=== PATIENT | female | born 1955 | race Caucasian/White ===

== ENCOUNTER 2018-03-01 07:42 | Emergency (ER) | payer MEDICAID, SELFPAY ==
[2018-03-01] VITALS (7 sets, daily range): BP systolic 131–184; BP diastolic 69–98; PULSE 74–89; RESP 16–19; TEMP 36.8; O2SAT 95–97; BMI 30.7
--- NOTE | 2018-03-01 08:02 | EKG12_ITS ---
Test Reason : DIZZINESS Blood Pressure : / mmHG Vent. Rate : 085 BPM Atrial Rate : 085 BPM P-R Int : 180 ms QRS Dur : 084 ms QT Int : 366 ms P-R-T Axes : 023 -28 020 degrees QTc Int : 435 ms Normal sinus rhythm Poor R wave progression Confirmed by AALIYAH LANCE, ENIO ([id number]), graphics editor GIO PALMA ([id number] on 03/05/2018 3:33:18 PM Referred By: ABHISHEK Confirmed By:ENIO FISCHER MD
--- NOTE | 2018-03-01 08:08 | ED.DCSUM_ITS ---
- ER Visit Summary Date of Service: 03/01/18 Chief Complaint: Dizzy History of Present Illness: The patient is a 62 F past medical history of hypothyroidism and palpitations. States that she felt dizzy today at work and nauseated. I asked her to explain specifically what she meant by dizzy and she said just flushed and cough. She denies any headache. She denies any chest pain. She denies any recent head injury. She denies the room spinning. She denies any neurological symptoms. No visual change. No speech change. No trouble using her hands or legs. She denies being off balance. Physical Examination: 62-year-old female no acute distress. Vital stable and afebrile. Initial blood pressure is 184/95. She does not look septic or toxic. She is in no distress. H EENT exam is unremarkable. Pupils round reactive light. Extra motions are intact. There is no signs of trauma to her face or scalp. No facial droop. Normal speech. Neck nontender. No lymphadenopathy. Lungs clear to auscultation bilaterally. Heart regular rate and rhythm no murmur. Rate of 80. Abdomen is soft and nontender. Normal bowel sounds no peritoneal signs. Patient moving all 4 extremities. Neurovascular intact. 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 Dorsi plantar flexion intact. Neurologically she is awake and alert with no focal motor deficits. Fingertip to nose and heel to [place] within normal limits. NIH score is 0. Back is nontender. Skin is unremarkable. Test Results: CBC normal white count of 7. Hemoglobin 14. Electrolytes unremarkable. Gap 11. Normal glucose. Creatinine 0.8. Orthostatic vital signs were negative. CT of the brain showed no acute abnormality. Read by the radiologist. Reviewed by me. Did the patient's dizziness even though clinically her exam was unremarkable I did obtain a CTA of the brain which was normal read by the radiologist. A CTA of the neck which showed a 50-69% stenosis of the right internal carotid artery. This can be followed up as an outpatient. Emergency Department Course and Treatment: Repeat exam patient is doing well at 1410. States she feels fine. Her symptoms have resolved. She understands we do not have a specific cause but is comfortable being discharged home with outpatient follow-up. She was specifically instructed to follow-up for further evaluation of the right internal carotid disease. Patient had further episodes of her dizziness while in the emergency department. Each time her vital signs, blood pressure and heart rate remained normal. And her exam otherwise Treatment Plan: Outpatient follow-up with her primary care physician Dr. Syl Shook Disposition: Discharge Impression: Transient dizziness of uncertain etiology resolved This note was generated with [employer] dictation software. It may contain incorrect words, spelling, and punctuation that were not noted in review of the chart prior to signing ED Disposition - Plan for ED Patient: Disposition: Home or Assisted Living Chief Complaint: Dizziness Instructions: ED Dizziness [facility] Referrals: Syl Shook, [STAFF PHYSICIAN] - As soon as possible Additional Instructions: Call follow-up with your primary care physician. Today your tests are basically unremarkable except for some narrowing of your right internal carotid artery but not to the degree that it would need any surgery at this time. This can be followed up as an outpatient with your primary care physician.
[2018-03-01 08:22] LABS: Absolute Lymphocyte Count 1.52 X10^3/ul (0.83-4.51); Absolute Neutrophil Count 5.4 X10^3/uL (2.0-7.7); Basophil# 0.01 X10^3/uL; Basophil% 0.1 % (0-1); Eosinophil# 0.23 X10^3/uL; Hematocrit 43.2 % (37-47); Hemoglobin 14.1 g/dl (12.0-15.0); Lymphocyte # 1.52 X10^3/ul (4.0); Lymphocyte % 19.6 % (19-41); Mean Corp Hgb Conc 32.6 g/gl (32-36); Mean Corpuscular Hgb 30.7 pg (27.0-32.0); Mean Corpuscular Volume 94.1 fL (81-99); Monocyte# 0.62 X10^3/uL; Neutrophil # 5.37 X10^3/uL (2.7-7.7); Neutrophil % 69.2 % (47-70); Platelet Count 321 K/mm3 (150-450); RBC Distribution Width CV 13.1 % (11.6-14.6); RBC Distribution Width SD 44.6 fl (35.1-43.9); Red Blood Count 4.59 M/mm3 (4.2-5.4); White Blood Count 7.8 K/mm3 (4.4-11.0)
[2018-03-01 08:25] LABS: POSITIVE COUNT NO; POSITIVE DIFFERENTIAL NO; POSITIVE MORPHOLOGY NO
--- NOTE | 2018-03-01 08:25 | CT_ITS ---
STUDY: CT BRAIN WITHOUT CONTRAST REASON FOR EXAM: Female, 62 years old. Dizziness. RADIATION DOSAGE (If Supplied By Facility): CTDIvol = ( 60.81 ) mGy, DLP = ( 998.67 ) mGycm TECHNIQUE: Transaxial CT imaging of the brain was performed without administration of intravenous contrast material. Individualized dose optimization techniques were used for this CT. COMPARISON: None. FINDINGS: Normal soft tissue structures. There is hyperostosis frontalis internus. Normal size ventricles and extra-axial spaces for the patient's age. Normal white matter tracts of the cerebral hemispheres. There are small punctate calcifications of the basal ganglia which are seen in the aging brain as a normal variant. Normal brainstem. Normal cerebellum. There is no intracranial hemorrhage. There are no findings of an acute ischemic infarction. Normal visualized paranasal sinuses. CT/Brain/Head without Contrast IMPRESSION: Normal unenhanced CT scan of the brain. Electronically Signed: Fili Kim MD at 9:21 EST , Service support ,
[2018-03-01 08:28] LABS: Anion Gap 11 (5-15); BUN 10 mg/dL (7-18); BUN/Creat Ratio 12.4 RATIO (10-20); Calcium,Total 8.9 mg/dL (8.5-10.1); Chloride 103 mmol/L (98-107); Creatinine, Serum 0.81 mg/dL (0.55-1.02); EST Glomerular Filtration Rate 76 mL/min (>60); Est Glom Filt Rate - Afr Amer 92 mL/min (>60); Estimated Creatinine Clearance 56.23 ml/min; Glucose 161 mg/dL (74-106); Potassium 3.6 mmol/L (3.5-5.1); Sodium Level 139 mmol/L (136-145)
--- NOTE | 2018-03-01 11:04 | ED.RN ---
NOTIFIED THAT PT STILL DOES NOT FEEL WELL.
[2018-03-01] MEDS: 0.9% Normal Saline 1,000 ML 999 ML IV (11:16)
--- NOTE | 2018-03-01 11:16 | CT_ITS ---
STUDY: CTA NECK WITH CONTRAST REASON FOR EXAM: Female, 62 years old. Dizziness, headache RADIATION DOSAGE (If Supplied By Facility): CTDIvol = ( 21.76 ) mGy, DLP = ( 668.38 ) mGycm TECHNIQUE: CT angiography with multi-detector data acquisition was performed from the aortic arch to the skull base following intravenous administration of 75 ml of Isovue 370 contrast. MIP images were reconstructed from the axial data set. Post-processing of the angiographic images was performed, with multiplanar reformation and 3D reconstruction. Individualized dose optimization techniques were used for this CT. COMPARISON: None. FINDINGS: AORTIC ARCH: Normal visualized aortic arch. Normal origins of the brachiocephalic, left common carotid, and left subclavian arteries. RIGHT CAROTID ARTERIES: Normal right common carotid artery (CCA). There is mild atherosclerotic plaque formation with minimal narrowing of the right carotid bulb. There is moderate atherosclerotic plaque formation of the origin of the right internal carotid artery with an estimated stenosis of 50-69% stenosis. Normal visualized cervical portion of the right internal carotid artery. Normal origin of the right external carotid artery (ECA). LEFT CAROTID ARTERIES: Normal left common carotid artery (CCA). Normal left common carotid bulb. Normal origin of the left internal carotid (ICA) artery without a hemodynamically significant stenosis. Normal visualized cervical portion of the left internal carotid artery. Normal origin of the left external carotid artery (ECA). VERTEBRAL ARTERIES: Normal bilateral vertebral arteries. No suspicious enhancing lesion, airway narrowing or deviation CT/CTA Neck W/WO Contrast IMPRESSION: 50-69% stenosis of the proximal right ICA with moderate atherosclerotic plaque best seen on axial image 119, and sagittal reconstructed image 72. No other evidence of hemodynamically significant stenosis Electronically Signed: Raman Lino MD at 11:57 EST , Service support ,
--- NOTE | 2018-03-01 11:16 | CT_ITS ---
STUDY: CTA OF THE BRAIN REASON FOR EXAM: Female, 62 years old. Headache and dizziness RADIATION DOSAGE (If Supplied By Facility): CTDIvol = ( 21.76 ) mGy, DLP = ( 668.38 ) mGycm TECHNIQUE: CT angiography was performed with a multi-detector CT scanner. Data acquisition was obtained from the skull base through the vertex following intravenous administration of 75 ml of Isovue 370. MIP images were reconstructed from the axial data set. Post-processing of the angiographic images was performed, with multiplanar reformation and 3D reconstruction. Individualized dose optimization techniques were used for this CT. COMPARISON: None. FINDINGS: Normal bilateral petrous carotid arteries. Normal right cavernous carotid artery with a normal supraclinoid bifurcation. Normal left cavernous carotid artery with a normal supraclinoid bifurcation. Normal right A1 segments of the anterior cerebral artery. Normal left A1 segments of the anterior cerebral artery. Normal intact anterior communicating artery (ACOM). Normal bilateral A2 segments of the anterior cerebral arteries. Normal right M1 and M2 segments of the middle cerebral arteries, with a normal M1 bifurcation. Normal left M1 and M2 segments of the middle cerebral arteries, with a normal M1 bifurcation. Normal right posterior communicating artery (PCOM). Normal left posterior communicating artery (PCOM). Normal bilateral vertebral arteries. Normal basilar artery with a normal basilar bifurcation. The visualized bilateral superior cerebellar (SCA) arteries are normal. Normal bilateral P1, P2 and visualized P3 segments of the posterior cerebral arteries. There is no demonstrated aneurysm of the [place]. There is no demonstrated abnormality of the visualized brain. CT/CTA Head W/WO Contrast IMPRESSION: Normal [place] without a demonstrated aneurysm or hemodynamically significant stenosis. Electronically Signed: Raman Lino MD at 11:55 EST , Service support ,
--- NOTE | 2018-03-01 14:21 | ED.DEP ---
ED Disposition - Plan for ED Patient: Disposition: Home or Assisted Living Chief Complaint: Dizziness Instructions: ED Dizziness [facility] Referrals: Syl Shook DO [STAFF PHYSICIAN] - As soon as possible Additional Instructions: Call follow-up with your primary care physician. Today your tests are basically unremarkable except for some narrowing of your right internal carotid artery but not to the degree that it would need any surgery at this time. This can be followed up as an outpatient with your primary care physician.
== END 2018-03-01 15:07 | disposition home or self-care (01) ==
PROVIDERS: Emergency Provider Emergency Medicine
DX: R42 Dizziness and giddiness (principal); E03.9 Hypothyroidism, unspecified; Z79.899 Other long term (current) drug therapy
CPT/HCPCS: 70450; 70496; 70498; 80048; 85025; 93005; 96360; 96361; 99285; J7030; Q9967

== ENCOUNTER → 2018-03-19 09:33 | Outpatient (CLI) | payer MEDICAID, SELFPAY ==
[2018-03-12 10:42] VITALS: BMI 29.2
--- NOTE | 2018-03-19 09:35 | US_ITS ---
STUDY: ABDOMINAL ULTRASOUND - RIGHT UPPER QUADRANT REASON FOR VISIT: Female, 62 years old. Epigastric pain TECHNIQUE: Ultrasound evaluation of the right upper quadrant was performed with real-time and static zee-scale imaging. TECHNICAL QUALITY: Adequate. COMPARISON: None. FINDINGS: Liver: The liver measures 14.4 cm. There is normal echogenicity of the liver. The bile ducts are within normal limits. There is hepatic color flow. The direction of portal flow is hepatopetal. There is no demonstrated mass lesion. Gallbladder: Normal distended gallbladder. The gallbladder wall measures 2.4 mm. There is a negative sonographic Negro's sign. There is no pericholecystic fluid. There are no gallstones. There is a 2.3 mm polyp Common Bile Duct (C.B.D.): The common bile duct measures 2.1 mm. Pancreas: Poorly visualized because of overlying bowel gas. Right Kidney: Normal size of the right kidney. The right kidney measures 10.3 x 4.8 cm. Normal renal cortex.. There is no demonstrated renal mass or cyst. There is no right hydronephrosis. US/Gallbladder IMPRESSION: No gallstones. A 2 x 3 mm polyp within the gallbladder wall Electronically Signed: Rahat Franco MD at 5:49 EST Tel , Service support ,
== END ==
PROVIDERS: Family Provider Family Medicine; PCP Family Medicine; Referring Provider Internal Medicine Cardiovascular Disease; Visit Provider Internal Medicine Cardiovascular Disease
DX: R07.9 Chest pain, unspecified (principal); R10.13 Epigastric pain; R42 Dizziness and giddiness; R94.31 Abnormal electrocardiogram [ECG] [EKG]
CPT/HCPCS: 76705; 93306

== ENCOUNTER → 2018-03-21 12:36 | Outpatient (CLI) | payer MEDICAID, SELFPAY ==
[2018-03-12 10:42] VITALS: BMI 29.2
--- NOTE | 2018-03-21 12:37 | STE_ITS ---
Reason For Study: Chest Pain Stress Results Protocol: Misael Protocol Maximum Predicted HR: 157 bpm Target HR: 133 bpm % Maximum Predicted HR: 82 % DurationHeart Rate Stage (mm:ss) (bpm) BP Comment Baseline 81 136/84No Chest Pain Misael Protocol Stage I 3:00 108 150/78No Chest Pain; Mild Dyspnea Misael Protocol Stage II 5:00 129 154/76No Chest Pain; Mild Dyspnea; Fatigue Recovery 91 126/74No Chest Pain Stress Duration: 8:00 mm:ss Maximum Stress HR: 129 bpm METS: 7 Baseline Echocardiogram Findings The estimated ejection fraction is 65 %. Stress Echo Wall motion Data Resting WM Intermediate WM Stress WM Resting Wall Motion Wall Motion Stress No regional wall motion No regional wall motion abnormalities noted. abnormalities noted. EKG Data Normal intervals are noted. The patient exercised according to the regular Misael protocol for a total duration of 8:00. The maximum heart rate attained was 130 beats per minute. This was 82% of maximum predicted heart rate. The patient exercised into stage 2 of the Misael protocol. During stress, there were no ST or T wave changes noted to suggest ischemia. No clinical angina was noted. Interpretation Summary The estimated ejection fraction is 65 %. Normal, adequate, treadmill echocardiogram. Negative for ischemia by EKG and echocardiographic criteria. No anginal symptoms noted. Rare PVCs noted. Appropriate blood pressure response to exercise. Below average exercise capacity for age. Final LVEF is 75%. Test terminated due to fatigue. No complications. Ordering Physician: Mitch Lopez Referring Physician: Nancy Evangelista Performed By: Blanche Jean RDCS, RVT
== END ==
PROVIDERS: Family Provider Family Medicine; PCP Family Medicine; Referring Provider Internal Medicine Cardiovascular Disease; Visit Provider Internal Medicine Cardiovascular Disease
DX: R07.9 Chest pain, unspecified (principal); R94.31 Abnormal electrocardiogram [ECG] [EKG]; R42 Dizziness and giddiness; I77.9 Disorder of arteries and arterioles, unspecified; E78.5 Hyperlipidemia, unspecified
CPT/HCPCS: 93017; 93350

== ENCOUNTER 2018-04-23 06:47 | Day surgery (SDC) | payer MEDICAID, SELFPAY ==
[2018-04-18 11:33] VITALS: BMI 29.0
--- NOTE | 2018-04-18 12:30 | RAD_ITS ---
STUDY: X-RAY CHEST REASON FOR EXAM: Female, 62 years old. Tachycardia, palpitations TECHNIQUE: PA and lateral views of the chest. COMPARISON: None. FINDINGS: The lungs are clear and expanded. There is no demonstrated pleural abnormality. Normal size heart. Normal mediastinum and myra. Normal visualized pulmonary arteries. Normal visualized aortic arch and descending thoracic aorta. There are diffuse degenerative changes of the visualized thoracic spine. Normal visualized ribs, clavicles, and shoulders. There is no demonstrated abnormality of the visualized soft tissue structures of the upper abdomen. RAD/Chest PA and Lateral IMPRESSION: No acute pulmonary process Electronically Signed: Raman Lino MD at 17:19 EDT , Service support ,
[2018-04-18 14:03] LABS: Hematocrit 41.3 % (37-47); Hemoglobin 13.4 g/dl (12.0-15.0); Mean Corp Hgb Conc 32.4 g/gl (32-36); Mean Corpuscular Hgb 30.7 pg (27.0-32.0); Mean Corpuscular Volume 94.5 fL (81-99); Mean Platelet Vol. 10.4 fl (6.2-12.0); Platelet Count 349 K/mm3 (150-450); RBC Distribution Width CV 12.8 % (11.6-14.6); RBC Distribution Width SD 44.3 fl (35.1-43.9); Red Blood Count 4.37 M/mm3 (4.2-5.4); White Blood Count 8.5 K/mm3 (4.4-11.0)
[2018-04-18 14:05] LABS: Scan Indicated on CBC? Y/N NO
[2018-04-18 14:06] LABS: Prothrombin Time (Protime)PT. 12.8 SECONDS (11.7-14.9)
[2018-04-18 14:07] LABS: Partial Thromboplast Time 29.2 Seconds (24.1-36.2)
[2018-04-18 14:20] LABS: AST(SGOT) 17 U/L (15-37); Alanine Aminotransfer ALT/SGPT 25 U/L (13-56); Albumin, Serum 3.8 g/dL (3.2-5.0); Alkaline Phosphatase 114 U/L (45-117); Anion Gap 8 (5-15); BUN 14 mg/dL (7-18); Calcium,Total 8.8 mg/dL (8.5-10.1); Chloride 103 mmol/L (98-107); Cholesterol 191 mg/dL (200); Creatinine, Serum 0.74 mg/dL (0.55-1.02); EST Glomerular Filtration Rate 85 mL/min (>60); Est Glom Filt Rate - Afr Amer 103 mL/min (>60); Globulin 3.8 g/dL (2.2-4.2); Glucose 107 mg/dL (74-106); High Density Lipoprotein 29 mg/dL; Magnesium 2.2 mg/dL (1.6-2.6); Potassium 4.2 mmol/L (3.5-5.1); Protein, Total 7.6 g/dL (6.4-8.2); Sodium Level 139 mmol/L (136-145); T4 Total, Thyroxin 7.9 ug/dL (4.8-13.9); Thyroid Stim Hormone (TSH) 2.18 uIU/mL (0.358-3.74); Triglycerides 595 mg/dL
[2018-04-22 07:39] VITALS: BMI 29.0
--- NOTE | 2018-04-23 08:56 | CL.D_ITS ---
Patient Name: RACHELE EARL Study Date: 04/23/2018 Performing: Mitch Lopez MD Ht: 61.81 inches 157 cm : 1955 Wt: 158.73 lbs 72 kg Age: 62 Gender: female BSA: 1.73 PROCEDURE(S) PERFORMED OY12-JSX/COR/LV CLINICAL PROFILE AND INDICATIONS Indications: Suspected CAD, Cardiac Arrythmia Heart Failure: None Stress/Imaging Stress Echocardiogram: Yes Result: NegativeStress Echocardiogram: Negative Angina Classification Anginal Classification w/in 2 Weeks: No symptoms CAD Presentations: Other: Frequent PVCs and palpitations Comorbidities/Risk Factors: Hypertension Dyslipidemia CONCLUSIONS Normal LV size, wall motion,and systolic function Non obstructive coronary arteries Perserved Left Ventricular systolic function with normal EDP LVEF: by LV gram 65 % RECOMMENDATIONS Management as per referring Medical Representative d/c plavix, cont baby asa for non obstructive CAD, d/c zocor, start gemfibrozil for high trigs. Manual sheath removal. DESCRIPTION OF PROCEDURE The patient arrived to the procedure lab. The risks and benefits of the procedure as well as a full d escription of our services here and current unavailability of surgical backup were fully explained to the patient and/or their significant other prior to the catheterization. The Timeout was completed, verifying the correct patient and procedure. The patient's procedural site was prepped and draped in the usual fashion. Local anesthetic was given subcutaneously to right groin region with Lidocaine 2%. Using a modified Seldinger technique, arterial access was obtained via the right femoral artery, a 4 Fr sheath was inserted Left Coronary Artery selective angiography was performed in multiple views us ing a 4 Fr. JL5 catheter. Right Coronary Artery selective angiography was then performed in multiple views using a 4 Fr. 3DRC catheter. Left Ventriculography was performed in MCGEE projection using a 4 Fr . Pigtail catheter. LV to AO pullback pressures were then recorded.The arterial sheath was pulled and manual compression applied until hemostasis is achieved. CORONARY ANGIOGRAPHY DOMINANCE: Right Dominant LEFT HEART ASSESSMENT Left Ventricular Ejection Fraction: by LV Gram 65 % Normal LV wall motion Normal Left Ventricular systolic function LVEDP: 9 mmHg Normal Left Ventricular End Diastolic Pressure LEFT MAIN: Angiographically normal LEFT ANTERIOR DECENDING ARTERY: DISTAL LAD: Mild luminal irregularities less than 30% CIRCUMFLEX ARTERY: Angiographically normal RIGHT CORONARY ARTERY: MID RCA: Mild calcification, Mild luminal irregularities less than 30% RT PLV: Angiographically normal RT PDA: Proximal - Angiographically normal COMPLICATIONS No Complications PROCEDURE MEDICATIONS Versed 1 mg IV Oxygen: 2 L/min via nasal cannula SUMMARY OF HEMODYNAMIC DATA Time AIR REST ECG 07:08:13 AO 144/59 (92) SA 08:40:14 LV 138/-24, 8 08:45:34 LV 135/-21, 9 08:45:40 LVp 135/-24, 8 08:45:45 AOp 129/55 (87) 08:45:50 Signed By Mitch Lopez MD On 04/23/2018 08:55:58 Mitch Lopez MD
== END 2018-04-23 13:05 | disposition home or self-care (01) ==
LOC: CLSP 06:49
PROVIDERS: Family Provider Family Medicine; PCP Family Medicine; Referring Provider Internal Medicine Cardiovascular Disease; Visit Provider Internal Medicine Cardiovascular Disease
DX: I25.10 Atherosclerotic heart disease of native coronary artery without angina pectoris (principal); I49.3 Ventricular premature depolarization; I10 Essential (primary) hypertension; E78.5 Hyperlipidemia, unspecified; E03.9 Hypothyroidism, unspecified; Z79.02 Long term (current) use of antithrombotics/antiplatelets; Z79.82 Long term (current) use of aspirin; Z79.899 Other long term (current) drug therapy
CPT/HCPCS: 36415; 71046; 80048; 80061; 80076; 83735; 84436; 84443; 85027; 85610; 85730; 93458; 99152; J7040; Q9967; C1769; C1894